=== PATIENT | female | born 1980 | race Caucasian/White ===

== ENCOUNTER 2017-12-24 12:59 | Outpatient (CLI) | payer BC ==
--- NOTE | 2017-12-24 15:30 | RAD ---
THREE VIEWS OF THE RIGHT MIDDLE FINGER: COMPARISON: None. HISTORY: Middle finger injury with pain. FINDINGS: Three views of the right middle finger show 2 separate fractures of the distal phalanx. There is a f racture of the tuft of the distal phalanx. In addition, there is an intraarticular fracture along th e base of the distal phalanx. There is mallet deformity of the finger. IMPRESSION: Distal phalanx fracture of the middle finger. POS: [facility]
== END 2017-12-24 13:00 | disposition home or self-care (01) ==
LOC: RAD-BREN 12:59
PROVIDERS: ATTEND Nurse Practitioner Family